=== PATIENT | male | born 1990 | race Caucasian/White ===

== ENCOUNTER 2016-04-13 19:02 | Emergency (ER) | payer OTHER ==
[~2016-04-13] VITALS: Ht 180.3 cm; Wt 77.1 kg
[2016-04-13 19:08] VITALS: BP 126/71
[2016-04-13] MEDS ORDERED: IBUPROFEN 400 MG TABLET PO ONE (19:30)
[2016-04-13] MEDS ORDERED: IBUPROFEN 400 MG TABLET ONE (19:53)
== END 2016-04-13 20:03 | disposition home or self-care (01) ==
LOC: ER 19:05
DX: M54.2 Cervicalgia (principal); Y08.89XA Assault by other specified means, initial encounter; Y93.89 Activity, other specified; Y92.89 Other specified places as the place of occurrence of the external cause; Y99.8 Other external cause status
CPT/HCPCS: 72040; 99284; A4606; Z7610